=== PATIENT | female | born 1995 | race African-American/Black ===

== ENCOUNTER 2017-04-15 00:01 | Outpatient (CLI) | payer MEDICAID ==
[~2017-04-15] VITALS: Ht 160 cm; Wt 111.8 kg
[2017-04-15] MEDS ORDERED: TERBUTALINE 1 MG/ML, 1ML ONE (02:24)
[2017-04-15] MEDS ORDERED: DIPHENHYDRAMINE 25 MG CAPSULE ONE (02:30)
[2017-04-15] MEDS ORDERED: PLEASE ENTER ALLERGIES MC SCH ×2 (02:30)
[2017-04-15] MEDS ORDERED: TERBUTALINE 1 MG/ML, 1ML SQ ONE (02:30)
[2017-04-15] MEDS ORDERED: DIPHENHYDRAMINE 25 MG CAPSULE PO ONE (02:30)
== END 2017-04-15 02:47 | disposition home or self-care (01) ==
LOC: LDOP 00:01
PROVIDERS: ATTEND Obstetrics & Gynecology
DX: O26.893 Other specified pregnancy related conditions, third trimester (principal); R10.9 Unspecified abdominal pain; Z3A.36 36 weeks gestation of pregnancy
CPT/HCPCS: 59025; 99201; J3105; Q0163; G0463

== ENCOUNTER 2017-04-20 22:32 | Outpatient (CLI) | payer MEDICAID ==
[~2017-04-20] VITALS: Ht 160 cm; Wt 111.3 kg
[2017-04-20 22:25] VITALS: BP 115/72
== END 2017-04-20 23:53 | disposition home or self-care (01) ==
LOC: LDOP 22:32
PROVIDERS: ATTEND Obstetrics & Gynecology
DX: O42.92 Full-term premature rupture of membranes, unspecified as to length of time between rupture and onset of labor (principal); O99.513 Diseases of the respiratory system complicating pregnancy, third trimester; J45.909 Unspecified asthma, uncomplicated; Z3A.37 37 weeks gestation of pregnancy
CPT/HCPCS: 59025; 89060; 99211; G0463; Q0114

== ENCOUNTER 2017-05-04 06:05 | Inpatient (IN) | payer MEDICAID ==
[~2017-05-04] VITALS: Ht 160 cm; Wt 113.6 kg
[2017-05-04] MEDS ORDERED: OXYTOCIN 30U/ 0.9% NaCL 500ML 500 ML IV ONE (06:08)
[2017-05-04] MEDS ORDERED: OXYTOCIN 30U/ 0.9% NaCL 500ML 500 ML IV PRN (06:08)
[2017-05-04] MEDS ORDERED: AMPICILLIN 2 GM in SODIUM CHLORIDE 0.9% 100 ML IVPB STA (06:08)
[2017-05-04] MEDS ORDERED: NEWBORN KIT ONE (06:10)
[2017-05-04] MEDS ORDERED: OXYTOCIN 30U/ 0.9% NaCL 500ML 500 ML ONE (06:10)
[2017-05-04 06:18] VITALS: BP 102/52
[2017-05-04] MEDS ORDERED: ONDANSETRON 2MG/ML, 2ML IVPush PRN (06:30)
[2017-05-04] MEDS ORDERED: FENTANYL PF 100 MCG/2ML IV PRN (06:30)
[2017-05-04] MEDS: LACTATED RINGERS 1,000 ML IV SCH ×4 (06:37→21:21)
[2017-05-04 06:54] LABS: HEMOGLOBIN 12.7 g/dL (11.7-16.4); WHITE BLOOD COUNT 6.3 x10^3/uL (3.4-10)
[2017-05-04] MEDS: AMPICILLIN 1 GM in SODIUM CHLORIDE 0.9% 50 ML IVPB SCH ×4 (10:22→22:43)
[2017-05-04] MEDS ORDERED: FENTANYL/BUPIV./NS/PF 250 ML EPIDCONT SCH (13:21)
[2017-05-04] MEDS ORDERED: BUPIVACAINE/PF 0.25% ONE (13:22)
[2017-05-04] MEDS ORDERED: FENTANYL/BUPIV./NS/PF 250 ML EPIDCONT ONE (13:22)
[2017-05-04] MEDS ORDERED: LACTATED RINGERS 1,000 ML IVBOLUS PRN (13:30)
[2017-05-04] MEDS ORDERED: NALOXONE 0.4 MG/ML, 1ML IVPush PRN (13:30)
[2017-05-04] MEDS ORDERED: EPHEDRINE 50 MG/ML, 1ML IVPush PRN (13:30)
[2017-05-04] MEDS: D5%-LACTATED RINGERS 1,000 ML IV SCH (19:20)
[2017-05-04] MEDS ORDERED: BUPIVACAINE/PF-EPI 0.25% 1:200K ONE (22:07)
[2017-05-04] MEDS ORDERED: FENTANYL PF 100 MCG/2ML ONE (23:12)
[2017-05-04] MEDS: FENTANYL PF 100 MCG/2ML IVPush PRN (23:18)
[2017-05-05] MEDS ORDERED: FENTANYL PF 100 MCG/2ML ONE ×3 (00:15→04:38)
[2017-05-05] MEDS: FENTANYL PF 100 MCG/2ML IVPush PRN (00:17)
[2017-05-05] MEDS: AMPICILLIN 1 GM in SODIUM CHLORIDE 0.9% 50 ML IVPB SCH ×3 (02:30→06:30)
[2017-05-05] MEDS: LACTATED RINGERS 1,000 ML IV SCH ×5 (02:33→16:20)
[2017-05-05] MEDS ORDERED: LIDOCAINE 1%, 20ML ONE (02:50)
[2017-05-05] MEDS ORDERED: MISOPROSTOL 200 MCG TABLET ONE (02:51)
[2017-05-05] MEDS: D5%-LACTATED RINGERS 1,000 ML IV SCH (03:16)
[2017-05-05] MEDS ORDERED: METOCLOPRAMIDE 5 MG/ML, 2ML ONE (04:05)
[2017-05-05] MEDS ORDERED: SODIUM CITRATE/CITRIC ACID 30 ML UDC ONE ×2 (04:05→04:49)
[2017-05-05] MEDS ORDERED: LACTATED RINGERS 1,000 ML IV SCH ×2 (04:32→06:20)
[2017-05-05] MEDS ORDERED: KETOROLAC 30 MG/1 ML ONE ×2 (04:37→04:49)
[2017-05-05] MEDS ORDERED: SUCCINYLCHOLINE 20 MG/ML, 10ML ONE (04:37)
[2017-05-05] MEDS ORDERED: PROPOFOL 10 MG/ML, 20ML ONE (04:37)
[2017-05-05] MEDS ORDERED: ONDANSETRON 2MG/ML, 2ML ONE ×2 (04:37→04:49)
[2017-05-05] MEDS ORDERED: CEFAZOLIN 1,000 MG ONE ×2 (04:37→04:49)
[2017-05-05] MEDS ORDERED: PHENYLEPHRINE 10 MG/ML ONE (04:37)
[2017-05-05] MEDS ORDERED: DEXAMETHASONE 4 MG/ML, 1ML ONE ×2 (04:37→04:49)
[2017-05-05] MEDS ORDERED: EPHEDRINE 50 MG/ML, 1ML ONE (04:37)
[2017-05-05] MEDS ORDERED: OXYTOCIN 10 UNITS/ML, 1ML ONE ×2 (04:37→04:49)
[2017-05-05] MEDS ORDERED: KETAMINE 10 MG/ML, 20ML ONE ×2 (04:49→05:33)
[2017-05-05] MEDS ORDERED: FENTANYL PF 100 MCG/2ML IV PRN (05:00)
[2017-05-05] MEDS ORDERED: MEPERIDINE/PF 25MG/0.5ML IVPush PRN (05:00)
[2017-05-05] MEDS ORDERED: PROMETHAZINE 25 MG/ML, 1ML IV PRN (05:00)
[2017-05-05] MEDS ORDERED: LACTATED RINGERS 1,000 ML IVBOLUS ONE (05:00)
[2017-05-05] MEDS ORDERED: HYDROcodone/APAP 7.5-325MG/15ML UDC PO PRN (05:00)
[2017-05-05] MEDS ORDERED: MIDAZOLAM 1 MG/ML, 2ML IV PRN (05:00)
[2017-05-05] MEDS ORDERED: ALBUTEROL SULFATE 2.5 MG/3 ML NPPB PRN (05:00)
[2017-05-05] MEDS ORDERED: METOCLOPRAMIDE 5 MG/ML, 2ML IV ONE (05:00)
[2017-05-05] MEDS ORDERED: OXYcodone 5 MG/5 ML ORAL.SOL UDC PO PRN (05:00)
[2017-05-05] MEDS ORDERED: LABETALOL 5MG/ML, 20ML IV PRN (05:00)
[2017-05-05] MEDS ORDERED: SODIUM CITRATE/CITRIC ACID 30 ML UDC PO ONE (05:00)
[2017-05-05] MEDS ORDERED: ONDANSETRON 2MG/ML, 2ML IVPush PRN (05:00)
[2017-05-05] MEDS ORDERED: HYDROmorphone 1 MG/ML, 1ML IV PRN (05:00)
[2017-05-05] MEDS ORDERED: hydrALAzine 20 MG/ML, 1ML IV PRN (05:00)
[2017-05-05] MEDS ORDERED: MIDAZOLAM 1 MG/ML, 2ML ONE (05:44)
[2017-05-05] MEDS ORDERED: ONDANSETRON 2MG/ML, 2ML IV PRN (06:30)
[2017-05-05] MEDS ORDERED: CALCIUM CARBONATE 500 MG TAB.CHEW PO PRN (06:30)
[2017-05-05] MEDS ORDERED: OXYcodone/APAP 5/325MG TABLET PO PRN (06:30)
[2017-05-05] MEDS ORDERED: morphine SULFATE 10 MG/ML, 1ML IVPush PRN (06:30)
[2017-05-05] MEDS ORDERED: METHYLERGONOVINE 0.2 MG/ML IM PRN (06:30)
[2017-05-05] MEDS ORDERED: ACETAMINOPHEN 325 MG TABLET PO PRN ×3 (06:30)
[2017-05-05] MEDS ORDERED: OXYcodone 5 MG/5 ML ORAL.SOL UDC ONE (06:49)
[2017-05-05] MEDS ORDERED: HYDROmorphone 1 MG/ML, 1ML ONE (06:49)
[2017-05-05] MEDS: OXYTOCIN 30U/ 0.9% NaCL 500ML 500 ML IV SCH ×2 (07:18→16:20)
[2017-05-05 08:50] VITALS: BP 113/78
[2017-05-05] MEDS: PRENATAL VIT/IRON/FA 1 EACH TABLET PO SCH (09:00)
[2017-05-05] MEDS: DOCUSATE 100 MG CAPSULE PO PRN ×2 (12:06→19:37)
[2017-05-05] MEDS: IBUPROFEN 800 MG TABLET PO PRN ×2 (12:06→23:42)
[2017-05-05 12:18] VITALS: BP 125/78
[2017-05-05 13:30] LABS: HEMATOCRIT 30.9 % (34.6-47.8); HEMOGLOBIN 10.5 g/dL (11.7-16.4); WHITE BLOOD COUNT 12.5 x10^3/uL (3.4-10)
[2017-05-05] MEDS: OXYcodone/APAP 5/325MG TABLET PO PRN ×3 (18:18→23:42)
[2017-05-05 20:00] VITALS: BP 118/70
[2017-05-05] MEDS ORDERED: DIPH,PERTUSS(ACELL),TET VAC/PF NC IM-VACC ONE (21:15)
[2017-05-05 23:51] VITALS: BP 114/76
[2017-05-06] MEDS: LACTATED RINGERS 1,000 ML IV SCH (01:07)
[2017-05-06] MEDS: OXYTOCIN 30U/ 0.9% NaCL 500ML 500 ML IV SCH (01:08)
[2017-05-06 04:00] VITALS: BP 116/74
[2017-05-06 07:22] VITALS: BP 131/77
[2017-05-06] MEDS: DOCUSATE 100 MG CAPSULE PO PRN ×2 (07:33→22:39)
[2017-05-06] MEDS: OXYcodone/APAP 5/325MG TABLET PO PRN ×4 (07:33→22:39)
[2017-05-06] MEDS: IBUPROFEN 800 MG TABLET PO PRN ×3 (07:33→23:55)
[2017-05-06] MEDS: PRENATAL VIT/IRON/FA 1 EACH TABLET PO SCH (07:33)
[2017-05-06 19:30] VITALS: BP 112/76
[2017-05-07 07:55] VITALS: BP 110/71
[2017-05-07] MEDS: IBUPROFEN 800 MG TABLET PO PRN ×2 (08:10→15:39)
[2017-05-07] MEDS: OXYcodone/APAP 5/325MG TABLET PO PRN ×2 (08:10→15:39)
[2017-05-07] MEDS: OXYTOCIN 30U/ 0.9% NaCL 500ML 500 ML IV SCH (08:20)
[2017-05-07] MEDS: LACTATED RINGERS 1,000 ML IV SCH (08:20)
[2017-05-07] MEDS: DOCUSATE 100 MG CAPSULE PO PRN (08:53)
[2017-05-07] MEDS: PRENATAL VIT/IRON/FA 1 EACH TABLET PO SCH (08:53)
[2017-05-07] MEDS ORDERED: OXYC-302 PO (14:39)
[2017-05-07] MEDS ORDERED: IBUP-1223 PO (14:40)
== END 2017-05-07 16:10 | disposition home or self-care (01) | DRG 766 ==
LOC: LDIP 06:05 → 2NW 05-05 08:24
PROVIDERS: ADMIT Obstetrics & Gynecology; ATTEND Obstetrics & Gynecology
PROC: 10D00Z1 Extraction of Products of Conception, Low, Open Approach (ICD-10-PCS; principal; 2017-05-05)
DX: O61.9 Failed induction of labor, unspecified (principal); J45.909 Unspecified asthma, uncomplicated; Z37.0 Single live birth; O99.52 Diseases of the respiratory system complicating childbirth; O33.9 Maternal care for disproportion, unspecified; O62.1 Secondary uterine inertia; Z3A.39 39 weeks gestation of pregnancy
CPT/HCPCS: 36415; 85025; 86850; 86900; 90715; J0290; J0690; J1100; J1170; J1885; J2250; J2405; J2704; J3010; J3490; J0330; J2370; J2590; J2765; J7120; J7121

== ENCOUNTER 2018-07-02 09:55 | Emergency (ER) | payer MEDICAID ==
[~2018-07-02] VITALS: Ht 160 cm; Wt 111.0 kg
[~2018-07-02 09:55] MED LIST: IBUP-1223 PO; OXYC-302 PO
[2018-07-02 09:59] VITALS: BP 133/90
--- NOTE | 2018-07-02 10:14 | NUR ---
Pt ambulates to room from triage with steady gait and balance.
--- NOTE | 2018-07-02 10:19 | NUR ---
First contact with pt. Pt AOx4, unlabored respirations equal bilaterally, skin is pink, warm, dry, and intact. Pt ambulates with steady gait and balance to [facility]. Pt states, "For a couple of weeks I have had abdominal pain. I have not been vomitting but dry heaving. I had diarrhea a week ago but that has stopped. I had heavier bleeding than I normally do for one day on tuesday *(06/30/18). I read a lot about ectopic with the control that I am on. I took two tests, one was positive one was negative." Pt states increase in urination and lower back pain. Pt denies cp, sob, trauma, vomitting, blood in stool, blood in urine, burning or pain with urination. All safety measures in place. Pt connected to NIBP and continous pulse ox. Call light is within reach.
--- NOTE | 2018-07-02 10:27 | NUR ---
Pt ambulates with steady gait and balance to bathroom to provide urine sample.
--- NOTE | 2018-07-02 10:43 | NUR ---
FLOAT RN NOTE: LAB A BS
[2018-07-02 10:44] LABS: MICROSCOPIC NOT IND
[2018-07-02 10:46] LABS: CULTURE INDICATED? NO
--- NOTE | 2018-07-02 11:38 | NUR ---
Patient given discharge instructions and they have confirmed that they understand the instructions. Patient ambulatory with steady gait. Pt left with all personal belongings. Pt left with prescription and discharge paperwork.
== END 2018-07-02 11:43 | disposition home or self-care (01) ==
LOC: ED 10:53
DX: R10.2 Pelvic and perineal pain (principal)
CPT/HCPCS: 36415; 81003; 84702; 99283

== ENCOUNTER 2018-08-03 09:12 | Emergency (ER) | payer MEDICAID ==
[~2018-08-03] VITALS: Ht 160 cm; Wt 111.3 kg
[2018-08-03 10:44] VITALS: BP 123/89
--- NOTE | 2018-08-03 10:44 | NUR ---
Patient/Caregiver given discharge instructions and they have confirmed that they understand the instructions. Patient ambulatory with steady gait.
== END 2018-08-03 10:47 | disposition home or self-care (01) ==
LOC: ED 10:19
DX: J06.9 Acute upper respiratory infection, unspecified (principal); J45.909 Unspecified asthma, uncomplicated
CPT/HCPCS: 71046; 99283

== ENCOUNTER 2018-10-13 15:35 | Emergency (ER) | payer MEDICAID ==
[~2018-10-13] VITALS: Ht 160 cm; Wt 112.4 kg
[2018-10-13 15:39] VITALS: BP 129/82
== END 2018-10-13 16:46 | disposition home or self-care (01) ==
LOC: ED 16:38
DX: J02.8 Acute pharyngitis due to other specified organisms (principal); B97.89 Other viral agents as the cause of diseases classified elsewhere; J45.909 Unspecified asthma, uncomplicated
CPT/HCPCS: 87081; 87880; 99283

== ENCOUNTER 2018-11-17 19:14 | Emergency (ER) | payer MEDICAID ==
[~2018-11-17] VITALS: Ht 160 cm; Wt 111.5 kg
[2018-11-17 19:16] VITALS: BP 138/85
--- NOTE | 2018-11-17 19:28 | NUR ---
PT PRESENTED WITH C/O RIGHT EYE PAIN AND SWELLING THAT STARTED TODAY. +BLURRED VISION. PT SITTING UP IN CHAIR, CALL LIGHT WITHIN REACH. AWAITING ERP FOR EVAL AND ORDERS
[2018-11-17] MEDS ORDERED: IBUPROFEN 600 MG TABLET ONE (19:34)
--- NOTE | 2018-11-17 19:35 | NUR ---
PT MEDICATED PER MAR
[2018-11-17] MEDS ORDERED: IBUPROFEN 600 MG TABLET PO ONE (20:00)
== END 2018-11-17 19:57 | disposition home or self-care (01) ==
LOC: ED 19:34
DX: H10.021 Other mucopurulent conjunctivitis, right eye (principal); B30.9 Viral conjunctivitis, unspecified; J02.8 Acute pharyngitis due to other specified organisms; B34.9 Viral infection, unspecified; J45.909 Unspecified asthma, uncomplicated; F17.200 Nicotine dependence, unspecified, uncomplicated
CPT/HCPCS: 99283

== ENCOUNTER 2021-02-08 17:09 | Inpatient (IN) | payer MEDICAID ==
[~2021-02-08] VITALS: Ht 157.5 cm; Wt 122.0 kg
[~2021-02-08 17:09] MED LIST changes: -OXYC-302 PO; +OXYC1TAB12 PO
[2021-02-08 17:39] VITALS: BP 124/65
[2021-02-08 18:21] LABS: AMPHETAMINE SCREEN, URINE Negative (Negative); BARBITURATE SCREEN, URINE Negative (Negative); BENZODIAZEPINE SCREEN, URINE Negative (Negative); CANNABINOID SCREEN, URINE Positive (Negative); COCAINE SCREEN, URINE Negative (Negative); METHADONE SCREEN, URINE Negative (Negative); OPIATE SCREEN, URINE Negative (Negative)
[2021-02-08] MEDS ORDERED: LACTATED RINGERS 1,000 ML IVBOLUS ONE (18:30)
[2021-02-08] MEDS ORDERED: SODIUM CITRATE/CITRIC ACID 30 ML UDC PO ONE (18:30)
[2021-02-08] MEDS ORDERED: AZITHROMYCIN 500 MG in SODIUM CHLORIDE 0.9% 250 ML IV ONE (18:30)
[2021-02-08] MEDS ORDERED: LACTATED RINGERS 1,000 ML IV SCH ×2 (18:30→21:00)
[2021-02-08] MEDS ORDERED: METOCLOPRAMIDE 5 MG/ML, 2ML IV ONE (18:30)
[2021-02-08 18:32] LABS: BASOPHILS % (AUTO) 1 % (0-1); EOSINOPHILS % (AUTO) 2 % (1-7); LYMPHOCYTES % (AUTO) 19 % (22-44); MEAN CORPUSCULAR HEMOGLOBIN 29.5 pg (27.0-34.8); MEAN CORPUSCULAR HGB CONC 33.1 g/dL (32.4-35.8); MEAN PLATELET VOLUME 7.2 fL (7.4-10.4); MONOCYTES % (AUTO) 5 % (2-9); NEUTROPHILS % (AUTO) 74 % (42-75); PLATELET COUNT 270 x10^3/uL (130-400); RED BLOOD COUNT 4.07 x10^6/uL (3.82-5.3); RED CELL DISTRIBUTION WIDTH 14.1 % (9.6-15.2)
[2021-02-08 18:45] VITALS: BP 124/65
[2021-02-08] MEDS ORDERED: SODIUM CITRATE/CITRIC ACID 15 ML UDC ONE ×2 (19:07→19:29)
[2021-02-08] MEDS ORDERED: NEWBORN KIT ONE (19:28)
[2021-02-08] MEDS ORDERED: OXYTOCIN 30U/ 0.9% NaCL 500ML 500 ML ONE (19:29)
[2021-02-08] MEDS ORDERED: METOPROLOL 1 MG/ML, 5ML IV PRN (19:30)
[2021-02-08] MEDS ORDERED: HYDROmorphone 2 MG/ML, 1ML IVPush PRN (19:30)
[2021-02-08] MEDS ORDERED: MIDAZOLAM 1 MG/ML, 2ML IV PRN (19:30)
[2021-02-08] MEDS ORDERED: LABETALOL 5MG/ML, 20ML IV PRN (19:30)
[2021-02-08] MEDS ORDERED: HYDROcodone/APAP 7.5-325MG/15ML UDC PO PRN (19:30)
[2021-02-08] MEDS ORDERED: ONDANSETRON 2MG/ML, 2ML IVPush PRN (19:30)
[2021-02-08] MEDS ORDERED: PROMETHAZINE 25 MG/ML, 1ML IV PRN (19:30)
[2021-02-08] MEDS ORDERED: ALBUTEROL SULFATE 2.5 MG/3 ML NPPB PRN (19:30)
[2021-02-08] MEDS ORDERED: OXYcodone 5 MG/5 ML ORAL.SOL UDC PO PRN (19:30)
[2021-02-08] MEDS ORDERED: FENTANYL PF 100 MCG/2ML IV PRN (19:30)
[2021-02-08] MEDS ORDERED: EPHEDRINE 50 MG/ML, 1ML IVPush PRN (19:30)
[2021-02-08] MEDS ORDERED: hydrALAzine 20 MG/ML, 1ML IV PRN (19:30)
[2021-02-08] MEDS ORDERED: MEPERIDINE/PF 25MG/0.5ML IVPush PRN (19:30)
[2021-02-08] MEDS ORDERED: PHENYLEPHRINE 10 MG/ML ONE (20:52)
[2021-02-08] MEDS ORDERED: FENTANYL PF 100 MCG/2ML ONE (20:52)
[2021-02-08] MEDS ORDERED: DEXAMETHASONE 4 MG/ML, 1ML ONE (20:52)
[2021-02-08] MEDS ORDERED: OXYTOCIN 10 UNITS/ML, 1ML ONE (20:52)
[2021-02-08] MEDS ORDERED: CEFAZOLIN 1,000 MG ONE (20:52)
[2021-02-08] MEDS ORDERED: KETOROLAC 30 MG/1 ML ONE (20:52)
[2021-02-08] MEDS ORDERED: ONDANSETRON 2MG/ML, 2ML ONE (20:52)
[2021-02-08] MEDS ORDERED: EPHEDRINE 50 MG/ML, 1ML ONE (20:52)
[2021-02-08] MEDS ORDERED: SIMETHICONE 80 MG CHEW TAB PO PRN (21:00)
[2021-02-08] MEDS ORDERED: DOCUSATE 100 MG CAPSULE PO PRN (21:00)
[2021-02-08] MEDS ORDERED: OXYcodone/APAP 5/325MG TABLET PO PRN (21:00)
[2021-02-08] MEDS ORDERED: MISOPROSTOL 200 MCG TABLET PR PRN (21:00)
[2021-02-08] MEDS ORDERED: METHYLERGONOVINE 0.2 MG/ML IM PRN (21:00)
[2021-02-08] MEDS ORDERED: ACETAMINOPHEN 325 MG TABLET PO PRN (21:00)
[2021-02-08] MEDS ORDERED: CARBOPROST TROMETHAMINE 250 MCG/ML, 1ML IM PRN (21:00)
[2021-02-08] MEDS: LACTATED RINGERS 1,000 ML IV SCH (21:00)
[2021-02-08] MEDS: OXYTOCIN 30U/ 0.9% NaCL 500ML 500 ML IV SCH (21:00)
[2021-02-08] MEDS ORDERED: ONDANSETRON 2MG/ML, 2ML IV PRN (21:00)
[2021-02-08] MEDS ORDERED: HYDROmorphone 2 MG/ML, 1ML ONE (21:56)
[2021-02-08] MEDS: KETOROLAC 30 MG/1 ML IV SCH (22:00)
[2021-02-09 00:15] VITALS: BP 101/72
[2021-02-09 04:00] VITALS: BP 106/68
[2021-02-09] MEDS: KETOROLAC 30 MG/1 ML IV SCH ×4 (04:10→21:50)
[2021-02-09] MEDS: OXYcodone IR 5MG TABLET PO PRN ×4 (05:48→22:18)
[2021-02-09 06:02] LABS: BASOPHILS % (AUTO) 0 % (0-1); EOSINOPHILS % (AUTO) 0 % (1-7); LYMPHOCYTES % (AUTO) 11 % (22-44); MEAN CORPUSCULAR HEMOGLOBIN 30.5 pg (27.0-34.8); MEAN CORPUSCULAR HGB CONC 34.2 g/dL (32.4-35.8); MEAN PLATELET VOLUME 7.4 fL (7.4-10.4); MONOCYTES % (AUTO) 5 % (2-9); NEUTROPHILS % (AUTO) 83 % (42-75); PLATELET COUNT 220 x10^3/uL (130-400); RED BLOOD COUNT 3.41 x10^6/uL (3.82-5.3); RED CELL DISTRIBUTION WIDTH 13.7 % (9.6-15.2)
[2021-02-09] MEDS: LACTATED RINGERS 1,000 ML IV SCH ×3 (07:00→23:27)
[2021-02-09] MEDS: OXYTOCIN 30U/ 0.9% NaCL 500ML 500 ML IV SCH ×3 (07:00→23:28)
[2021-02-09 08:35] VITALS: BP 107/72
[2021-02-09] MEDS ORDERED: PRENATAL VIT/IRON/FA 1 EACH TABLET PO SCH (09:00)
[2021-02-09 12:26] VITALS: BP 134/83
[2021-02-09 16:30] VITALS: BP 108/74
[2021-02-09 19:15] VITALS: BP 126/81
[2021-02-10 00:35] VITALS: BP 91/65
[2021-02-10] MEDS: OXYcodone IR 5MG TABLET PO PRN (02:58)
[2021-02-10] MEDS: KETOROLAC 30 MG/1 ML IV SCH (03:43)
[2021-02-10 08:00] VITALS: BP 108/80
[2021-02-10] MEDS ORDERED: OXYC1TAB12 PO (09:03)
[2021-02-10] MEDS ORDERED: IBUP-1222 PO ×2 (09:03→13:29)
[2021-02-10] MEDS ORDERED: IBUPROFEN 600 MG TABLET PO PRN ×2 (12:00→21:00)
[2021-02-10] MEDS ORDERED: IBUPROFEN 600 MG TABLET ONE (12:04)
[2021-02-10 12:23] VITALS: BP 129/70
[2021-02-10] MEDS ORDERED: DOCU-131 PO (13:29)
== END 2021-02-10 15:00 | disposition home or self-care (01) | DRG 787 ==
LOC: LDOP 17:09 → LDIP 18:05 → 2NW 02-09 00:04
PROVIDERS: ADMIT Obstetrics & Gynecology Maternal & Fetal Medicine; ATTEND Obstetrics & Gynecology Maternal & Fetal Medicine
PROC: 10D00Z1 Extraction of Products of Conception, Low, Open Approach (ICD-10-PCS; principal; 2021-02-08)
DX: O42.92 Full-term premature rupture of membranes, unspecified as to length of time between rupture and onset of labor (principal); O99.324 Drug use complicating childbirth; O34.211 Maternal care for low transverse scar from previous cesarean delivery; Z20.822 Contact with and (suspected) exposure to COVID-19; O99.214 Obesity complicating childbirth; E66.01 Morbid (severe) obesity due to excess calories; Z37.0 Single live birth; Z3A.38 38 weeks gestation of pregnancy; F12.90 Cannabis use, unspecified, uncomplicated
CPT/HCPCS: 36415; 80307; 84112; 85025; 86592; 86850; 86900; 87635; G0378; J0690; J1100; J1170; J1885; J2405; J3010; J2370; J2590; J2765; J7120